=== PATIENT | male | born 1995 | race Caucasian/White ===

== ENCOUNTER 2017-03-27 21:14 | Emergency (ER) | payer OTHER ==
[2017-03-27 21:19] VITALS: O2SAT 94
--- NOTE | 2017-03-27 21:47 | EDPHY ---
HPI/HX/ROS/PE/MDM Narrative: CHIEF COMPLAINT: Abdominal pain HPI: This patient is a 21 year old male who presents to the Emergency Department complaining of episodic abdominal pain increasing in severity and frequency over the past two weeks. He describes the pain as persistent burning with occasional stabbing, generalized to his entire abdomen but most severe just right of the his umbilicus. At time of arrival, he describes the pain as waxing and waning since early this evening. He reports one episode of vomiting tonight. Denies fever or chills, diarrhea, or urinary complaints. No history of abdominal surgeries. Family history of gall bladder disease in grandparents. REVIEW OF SYSTEMS: Aside from elements discussed in the HPI, a comprehensive 10-point review of systems was reviewed and is negative. PMH: Denies. No abdominal surgery. SOCIAL HISTORY: Mother and friend at bedside. Just graduated from college. He reports increased stress recently. PHYSICAL EXAM: General:Patient is alert, in no acute distress. ENT:Eyes are normal to inspection. ENT inspection normal. Neck: Normal inspection. Full range of motion. Respiratory:No respiratory distress. Breath sounds normal bilaterally. Cardiovascular: Regular rate and rhythm. Strong peripheral pulses. Normal cap refill. Abdomen:The abdomen is nontender to palpation. There are no peritoneal signs. There are normal bowel sounds. Back: Normal to inspection. No tenderness to palpation. Skin: Normal color. No rash. Warm and dry. Extremities: Normal appearance. Full range of motion. Neuro: Oriented x3. Normal motor function. Normal sensory function. ED Course: Normally healthy 21-year-old male presents with complaint of episodic periumbilical abdominal pain over the past two weeks with one episode of vomiting tonight. His abdomen is non-tender on exam. I discussed with him the plan for labs and abdominal x-ray and ultrasound. He is agreeable to this. IV established. 1L IV NS and PO GI cocktail administered. Labs obtained and are unremarkable. Abdominal x-ray is suggestive of constipation. US of the abdomen is negative for acute abnormality.. I discussed lab and imaging findings with the patient. I recommend that he follows up with a gis engineer as early as possible next week for further evaluation of his episodic abdominal pain. He is agreeable to this. He will be discharged home in good condition with customary return precautions. He understands that if his symptoms do not improve after bowel movement that he should return to the emergency department for further workup. Re-evaluation, he is comfortable, his abdomen is benign and he shows no sign of acute abdominal emergency. - Data Points Imaging Results: Imaging Impressions Abdomen Ultrasound 03/27/17 21:54 Impression: Negative right upper quadrant ultrasound. Specifically, negative for cholelithiasis or secondary findings to suggest acute cholecystitis. Results called and discussed with Yoel Tucker MD on 03/27/2017 at 23:03 Abdomen X-Ray 03/27/17 21:54 Impression: Query constipation. Laboratory Results: Laboratory Results 03/27/17 22:00 03/27/17 22:00 03/27/17 03/27/17 22:00 22:00 WBC 8.22 10^3/uL 10^3/uL (3.80-9.50) RBC 4.63 10^6/uL 10^6/uL (4.40-6.38) Hgb 14.9 g/dL g/dL (13.7-17.5) Hct 42.5 % % (40.0-51.0) MCV 91.8 fL fL (81.5-99.8) MCH 32.2 pg pg (27.9-34.1) MCHC 35.1 g/dL g/dL (32.4-36.7) RDW 11.9 % % (11.5-15.2) Plt Count 263 10^3/uL 10^3/uL (150-400) MPV 10.6 fL fL (8.7-11.7) Neut % (Auto) 61.0 % % (39.3-74.2) Lymph % (Auto) 27.4 % % (15.0-45.0) [place] % (Auto) 10.0 % % (4.5-13.0) Eos % (Auto) 0.7 % % (0.6-7.6) Baso % (Auto) 0.7 % % (0.3-1.7) Nucleat RBC Rel Count 0.0 % % (0.0-0.2) Absolute Neuts (auto) 5.01 10^3/uL 10^3/uL (1.70-6.50) Absolute Lymphs (auto) 2.25 10^3/uL 10^3/uL (1.00-3.00) Absolute Monos (auto) 0.82 10^3/uL H 10^3/uL (0.30-0.80) Absolute Eos (auto) 0.06 10^3/uL 10^3/uL (0.03-0.40) Absolute Basos (auto) 0.06 10^3/uL 10^3/uL (0.02-0.10) Absolute Nucleated RBC 0.00 10^3/uL 10^3/uL (0-0.01) Immature Gran % 0.2 % % (0.0-1.1) Immature Gran # 0.02 10^3/uL 10^3/uL (0.00-0.10) Sodium 133 mEq/L L mEq/L (134-144) Potassium 4.2 mEq/L mEq/L (3.5-5.2) Chloride 97 mEq/L mEq/L (97-110) Carbon Dioxide 23 mEq/l mEq/l (22-31) Anion Gap 13 mEq/L mEq/L (8-16) BUN 10 mg/dL mg/dL (7-23) Creatinine 0.7 mg/dL mg/dL (0.7-1.3) Estimated GFR > 60 Glucose 101 mg/dL H mg/dL (70-100) Calcium 9.8 mg/dL mg/dL (8.5-10.4) Total Bilirubin 0.4 mg/dL mg/dL (0.1-1.4) Conjugated Bilirubin 0.2 mg/dL mg/dL (0.0-0.5) Unconjugated Bilirubin 0.2 mg/dL mg/dL (0.0-1.1) AST 21 IU/L IU/L (17-59) ALT 32 IU/L IU/L (21-72) Alkaline Phosphatase 78 IU/L IU/L (38-126) Total Protein 8.0 g/dL g/dL (6.3-8.2) Albumin 4.8 g/dL g/dL (3.5-5.0) Lipase 52.0 IU/L IU/L (23-300) Medications Given: Discontinued Medications Al Hydroxide/Mg Hydroxide (Maalox Susp) 30 ml PO ONCE ONE Stop: 03/27/17 21:56 Last Admin: 03/27/17 22:05 Dose: 30 ml Hyoscyamine Sulfate (Levsin, Hyomax-Sl) 0.25 mg PO ONCE ONE Stop: 03/27/17 21:56 Last Admin: 03/27/17 22:15 Dose: 0.25 mg Sodium Chloride (Ns) 1,000 mls @ 0 mls/hr IV ONCE ONE; Wide Open PRN Reason: Protocol Stop: 03/27/17 21:55 Last Admin: 03/27/17 22:08 Dose: 1,000 mls Lidocaine (Lidocaine 2% Viscous) 15 ml PO ONCE ONE Stop: 03/27/17 21:56 Last Admin: 03/27/17 22:05 Dose: 15 ml General Time Seen by Provider: 03/27/17 21:38 Initial Vital Signs: Initial Vital Signs Temperature (C) 36.7 C 03/27/17 21:15 Heart Rate 84 03/27/17 21:15 Respiratory Rate 16 03/27/17 21:15 Blood Pressure 154/84 H 03/27/17 21:15 O2 Sat (%) 94 03/27/17 21:15 O2 Delivery Mode Room Air Allergies/Adverse Reactions: No Known Allergies Allergy (Unverified 06/12/11 18:39) Home Medications: Medication Instructions Recorded NK [No Known Home Meds] 03/27/17 Departure - Departure Disposition: Home, Routine, Self-Care Clinical Impression: Abdominal pain Qualifiers: Abdominal location: periumbilical Qualified Code(s): R10.33 - Periumbilical pain Constipation Qualifiers: Constipation type: chronic idiopathic constipation Qualified Code(s): K59.04 - Chronic idiopathic constipation Condition: Good Instructions: Constipation (ED), High Fiber Diet (ED), Abdominal Pain (ED) Additional Instructions: 1. Follow-up as soon as possible with a gis engineer for further evaluation of your abdominal pain. 2. Take [id number] MiraLAX as directed for constipation. Eat a diet high in fiber as described in the attached packet. 3. Return to the Emergency Department with severe, uncontrollable pain; uncontrollable vomiting; blood in stool or vomit; weakness; fever or chills; or for other serious concerns. Referrals: Augustin Greco MD [Medical Doctor] - As per Instructions Report Scribed for: Yoel Tucker Report Scribed by: Malu Jacobs Date of Report: 03/27/17 Time of Report: 21:47 Physician Review and Approval Statement: Portions of this note were transcribed by an ED scribe. I personally performed the history, physical exam, and medical decision making; and confirm the accuracy of the information in the transcribed note.
[2017-03-27] MEDS ORDERED: NS 1,000 ML IV ONE (21:54)
[2017-03-27] MEDS ORDERED: HYOSCYAMINE SULFATE 0.125 MG TAB PO ONE (21:55)
[2017-03-27] MEDS ORDERED: MAG HYDROX/AL HYDROX/SIMETH 30 ML UDCUP PO ONE (21:55)
[2017-03-27] MEDS ORDERED: LIDOCAINE 2% VISCOUS 15 ML UDCUP PO ONE (21:55)
[2017-03-27 22:09] LABS: % IMMATURE GRANULYOCYTES 0.2 % (0.0-1.1); ABSOLUTE IMMATURE GRANULOCYTES 0.02 10^3/uL (0.00-0.10); ADD DIFF? NO; ADD MORPH? NO; ADD SCAN? NO; ATYPICAL LYMPHOCYTE FLAG 20 (0-99); FRAGMENT RBC FLAG 0 (0-99); HEMATOCRIT 42.5 % (40.0-51.0); HEMOGLOBIN 14.9 g/dL (13.7-17.5); LEFT SHIFT FLG 0 (0-99); LIPEMIA HEMOLYSIS FLAG 90 (0-99); MEAN CELL HEMOGLOBIN 32.2 pg (27.9-34.1); MEAN CELL HEMOGLOBIN CONCENTR. 35.1 g/dL (32.4-36.7); MEAN CELL VOLUME 91.8 fL (81.5-99.8); MEAN PLATELET VOLUME 10.6 fL (8.7-11.7); PLATELET CLUMPS FLAG 20 (0-99); PLATELET COUNT 263 10^3/uL (150-400); RED BLOOD CELL COUNT 4.63 10^6/uL (4.40-6.38); RED CELL DISTRIBUTION WIDTH 11.9 % (11.5-15.2)
[2017-03-27] MEDS ORDERED: HYOSCYAMINE SULFATE 0.125 MG TAB ONE (22:10)
[2017-03-27 22:19] LABS: ALANINE AMINOTRANSFERASE 32 IU/L (21-72); ALBUMIN 4.8 g/dL (3.5-5.0); ALKALINE PHOSPHATASE 78 IU/L (38-126); ANION GAP 13 mEq/L (8-16); ASPARTATE AMINOTRANSFERASE 21 IU/L (17-59); BILIRUBIN,TOTAL 0.4 mg/dL (0.1-1.4); BILIRUBIN-CONJUGATED 0.2 mg/dL (0.0-0.5); BILIRUBIN-UNCONJUGATED 0.2 mg/dL (0.0-1.1); CALCIUM 9.8 mg/dL (8.5-10.4); CARBON DIOXIDE 23 mEq/l (22-31); CHLORIDE 97 mEq/L (97-110); CREATININE 0.7 mg/dL (0.7-1.3); GLOMERULAR FILTRATION RATE > 60; GLUCOSE 101 mg/dL (70-100); POTASSIUM 4.2 mEq/L (3.5-5.2); SODIUM 133 mEq/L (134-144)
[2017-03-27 23:39] VITALS: BP 154/87; PULSE 54; RESP 20; TEMP 98.2
== END 2017-03-27 23:39 | disposition home or self-care (01) ==
DX: K59.04 Chronic idiopathic constipation (principal); E86.9 Volume depletion, unspecified